=== PATIENT | male | born 1950 | race Caucasian/White ===

== ENCOUNTER 2017-01-16 06:24 | Day surgery (SDC) | payer OTHER ==
[~2017-01-16 06:24] MED LIST: Lactated Ringers 1,000 ML IV SCH
[2017-01-16] MEDS ORDERED: hydrALAZINE 20 MG/ML SDV IVPUSH ONE (07:22)
[2017-01-16] MEDS ORDERED: Bupivacaine 0.5% 30 ML SDV ONE (07:27)
--- NOTE | 2017-01-16 07:27 | PCM.PREANE ---
Preanesthetic Assessment - Anesthesia/Transfusion/Family Hx Anesthesia History: Prior Anesthesia Without Reaction Family History of Anesthesia Reaction: No Transfusion History: No Prior Transfusion(s) - Review of Systems General: No Symptoms Pulmonary: No Symptoms Cardiovascular: No Symptoms Gastrointestinal: No symptoms Neurological: No Symptoms Other: Reports: None - Physical Assessment NPO Status Date: 01/15/17 NPO Status Time: 23:00 O2 Sat by Pulse Oximetry: 98 Respiratory Rate: 16 Vital Signs: Last Vital Signs Temp 36.6 C 01/16/17 06:45 Pulse 61 01/16/17 06:45 Resp 16 01/16/17 06:45 BP 157/101 H 01/16/17 06:45 Pulse Ox 98 01/16/17 06:45 Height: 1.83 m Weight: 87.09 kg ASA Class: 2 Mental Status: Alert & Oriented x3 Airway Class: Mallampati = 2 Dentition: Reports: Normal Dentition Lungs: Clear to auscultation Cardiovascular: Regular Rate - Allergies Allergies/Adverse Reactions: Allergies Allergy/AdvReac Type Severity Reaction Status Date / Time No Known Allergies Allergy Verified 01/13/17 07:56 - Anesthesia Plan Pre-Op Medication Ordered: Other (iv hydralazine for hypertension without tachycardia) - Acknowledgements Anesthesia Type Planned: MAC Pt an Appropriate Candidate for the Planned Anesthesia: Yes Alternatives and Risks of Anesthesia Discussed w Pt/Guardian: Yes Pt/Guardian Understands and Agrees with Anesthesia Plan: Yes PreAnesthesia Questionnaire - Past Health History Medical/Surgical History: Denies Medical/Surgical History Oncologic (Cancer) History: Reports: Basal Cell Carcinoma Other Oncologic History: basal cell carcinoma of chest - Past Surgical History Head Surgeries/Procedures: Reports: None Dermatological Surgical History: Reports: Skin Biopsy - SUBSTANCE USE Smoking Status *Q: Never Smoker Recreational Drug Use History: No - HOME MEDS Home Medications: Home Meds . [No Known Home Meds] 01/13/17 [History] - CURRENT (IN HOUSE) MEDS Current Meds: Current Medications Hydralazine HCl (Apresoline) 10 mg IVPUSH ONETIME ONE Stop: 01/16/17 07:23 Lactated Ringer's (Ringers, Lactated) 1,000 mls @ 125 mls/hr IV ASDIRECTED CALEB Last Admin: 01/16/17 07:02 Dose: 125 mls/hr
[2017-01-16] MEDS ORDERED: Lidocaine 1% 20 ML MDV ONE (07:28)
[2017-01-16] MEDS ORDERED: Lidocaine 2% 5 ML SDV ONE (07:35)
[2017-01-16] MEDS ORDERED: fentaNYL 100 MCG/2 ML SDV ONE ×2 (07:36→08:23)
[2017-01-16] MEDS ORDERED: Midazolam 1 MG/ML 2 ML SDV ONE (07:36)
[2017-01-16] MEDS ORDERED: Propofol 200 MG/20 ML SDV ONE (07:36)
[2017-01-16] MEDS ORDERED: Phenylephrine/Normal Saline 100 MCG/ML 10 ML Syringe ONE (08:34)
[2017-01-16] MEDS ORDERED: fentaNYL 100 MCG/2 ML SDV IVPUSH PRN (08:36)
[2017-01-16] MEDS ORDERED: Ketorolac 30 MG/ML SDV ONE (08:45)
[2017-01-16] MEDS ORDERED: Ondansetron 4 MG/2 ML SDV ONE (08:45)
[2017-01-16] MEDS ORDERED: Acetaminophen/HYDROcodone 325-5 MG Tab PO PRN (09:21)
[2017-01-16] MEDS ORDERED: Morphine 10 MG/ML Syringe IVPUSH PRN (09:21)
--- NOTE | 2017-01-16 09:24 | PCM.OPNOTE ---
- General Post-Op/Procedure Note Date of Surgery/Procedure: 01/16/17 Operative Procedure(s): Wide local excision left upper back basal cell skin cancer with frozen section control and layered 10 cm closure Pre Op Diagnosis: Left upper back lesion Post-Op Diagnosis: Basal cell skin cancer with clear frozen section margins Anesthesia Technique: General LMA (ASA II) Primary Surgeon: Tr Brar Fluid Replacement, Intraop: 1,300 EBL in mLs: 5 Condition: Good Free Text/Narrative:: Dictation [id number]
[2017-01-16] MEDS ORDERED: Lactated Ringers 1,000 ML IV SCH (09:30)
--- NOTE | 2017-01-16 09:37 | PCM.POSTAN ---
POST ANESTHESIA ASSESSMENT - MENTAL STATUS Mental Status: alert, oriented - RESPIRATORY Respiratory Status: respiratory rate WNL, airway patent, O2 saturation stable - CARDIOVASCULAR CV Status: pulse rate WNL, blood pressure stable - GASTROINTESTINAL GI Status: no symptoms - PAIN Pain Score: 0 - POST OP HYDRATION Hydration Status: adequate & stable
--- NOTE | 2017-01-16 09:37 | PCM48HPAN ---
Post Anesthesia Note - EVALUATION WITHIN 48HRS OF ANESTHETIC Vital Signs in Normal Range: Yes Patient Participated in Evaluation: Yes Respiratory Function Stable: Yes Airway Patent: Yes Cardiovascular Function Stable: Yes Hydration Status Stable: Yes Pain Control Satisfactory: Yes Nausea and Vomiting Control Satisfactory: Yes Mental Status Recovered: Yes
[2017-01-16 11:06] VITALS: BP 145/91
--- NOTE | 2017-01-16 13:18 | OR ---
SURGEON: Tr Brar M.D. DATE OF PROCEDURE: 01/16/2017 OPERATION PERFORMED: Wide local excision of biopsy-proven basal cell skin cancer, left back with frozen section control and layer 10 cm closure. ANESTHESIA: General LMA. ASA CLASSIFICATION: II. PREOPERATIVE DIAGNOSIS: Basal cell skin cancer. POSTOPERATIVE DIAGNOSIS: Basal cell skin cancer with clear frozen section surgical margins. ESTIMATED BLOOD LOSS: 5 mL. INTRAOPERATIVE FLUID REPLACEMENT: 1300 mL of crystalloid. DESCRIPTION OF PROCEDURE: The patient was taken to the operating room, placed on the operating table in the supine position. Time-out was called for appropriate identification of the patient and procedure. Following satisfactory attainment of general anesthesia with placement of an LMA, the patient was positioned on the beanbag in the right lateral decubitus position. The surgical site was prepped with Betadine solution. Sterile drapes were applied. The skin incision had previously been marked out and was now infiltrated with 0.5% Marcaine solution. Elliptical excision of the lesion on his left back was carried out and the superior margin was marked with a silk suture. The specimen was then sent to pathology for frozen sections. The wound was undermined to allow for tension-free closure. While waiting for frozen sections, the incision was closed in 2 layers approximating the subcutaneous tissue with interrupted 3-0 Vicryl. The skin edges were reapproximated with subcuticular 4-0 Monocryl. Once we had obtained the pathology report revealing the superior and inferior surgical margins were clear, the incision was Steri-Stripped and dressed with a sterile Tegaderm pad. Sponge, needle, and instrument counts were all correct. The patient tolerated the procedure well and was placed on the transfer cart in the supine position. Following emergence from anesthesia and extubation, he was taken to recovery room in stable condition. JOYCE / JOHNATHON /[id number]
== END 2017-01-16 10:45 | disposition home or self-care (01) ==
LOC: MW.SDS 06:24
PROVIDERS: ATTEND Surgery
DX: C44.519 Basal cell carcinoma of skin of other part of trunk (principal); Z78.9 Other specified health status
CPT/HCPCS: 11603; 12034; A9270; J0360; J1885; J2250; J2270; J2405; J3010; J7120; 00300; 88305; 88331; 88332; J2704